=== PATIENT | male | born 1995 | race Native Hawaiian/Other Pacific Islander ===

== ENCOUNTER 2019-12-28 02:14 | Day surgery (SDC) | payer OTHER ==
[2019-12-28 02:42] LABS: BILIRUBIN,URINE NEGATIVE (NEGATIVE); GLUCOSE, URINE (UA) NEGATIVE (NEGATIVE); KETONES,URINE (UA) TRACE mg/dL (NEGATIVE); LEUKOCYTE ESTERASE, URINE NEGATIVE (NEGATIVE); NITRITE,URINE NEGATIVE (NEGATIVE); OCCULT BLOOD,URINE NEGATIVE (NEGATIVE); PROTEIN,URINE NEGATIVE (NEGATIVE); UROBILINOGEN,URINE 0.2 (NORMAL) E.U./dL (NORMAL)
[2019-12-28 02:45] LABS: CLARITY,URINE CLEAR (CLEAR)
[2019-12-28] MEDS ORDERED: HYDROmorphone 1 MG/ML CARPUJECT IVP STA ×3 (02:47→07:16)
[2019-12-28] MEDS ORDERED: KETOROLAC 30 MG/ML VIAL IVP STA (02:47)
[2019-12-28] MEDS ORDERED: SODIUM CHLORIDE 0.9% 1,000 ML IV ONE (02:47)
--- NOTE | 2019-12-28 02:58 | ED Physician Documentation ---
History of Present Illness - Stated complaint Stated Complaint: ABD PX - Chief complaint Chief Complaint: Abd Pain - Additonal information Additional information: Patient comes emergency department complaining of lower abdominal plane pain t hat is slightly to the right. Patient states that this started suddenly this evening and that he was feeling fine earlier in the day. Patient states this is happened once before and that he was put on antibiotics for it. He still has his appendix. He denies any history of kidney stones that he knows of. He has had a little diarrhea and has had nausea with the pain, but no vomiting. Patient denies fevers or chills. No cough, shortness of breath, or chest pain. No dysuria. No other complaints at this time.He states movement makes the pain worse and nothing makes it better. Pain is 10 out of 10 at its worst. Review of Systems Ten Systems: 10 systems reviewed and negative Constitutional: reports: Reviewed and negative Eyes: reports: Reviewed and negative Ears: reports: Reviewed and negative Nose: reports: Reviewed and negative Throat: reports: Reviewed and negative Cardiac: reports: Reviewed and negative Respiratory: reports: Reviewed and negative GI: reports: Abdominal Pain, Nausea, Diarrhea : reports: Reviewed and negative Skin: reports: Reviewed and negative Musculoskeletal: reports: Reviewed and negative Neurologic: reports: Reviewed and negative Psychiatric: reports: Reviewed and negative Endocrine: reports: Reviewed and negative Immunocompromised: reports: Reviewed and negative PD PAST MEDICAL HISTORY - Present Medications Home Medications: Ambulatory Orders Medication Instructions Recorded Confirmed No Known Home Medications 12/28/19 12/28/19 - Allergies Allergies/Adverse Reactions: Allergies Allergy/AdvReac Type Severity Reaction Status Date / Time No Known Drug Allergies Allergy Verified 12/28/19 02:23 PD ED PE NORMAL - Vitals Vital signs reviewed: Yes - General General: Alert and oriented X 3, Well developed/nourished, Other (Patient appears significantly uncomfortable, wincing in pain. Other than this, he is in no apparent distress.) - HEENT HEENT: Atraumatic, PERRL, EOMI, Moist mucous membranes - Neck Neck: Supple, no meningeal sign - Cardiac Cardiac: RRR, No murmur - Respiratory Respiratory: No respiratory distress, Clear bilaterally - Abdomen Abdomen: Soft, Non distended, Other (Moderate tenderness suprapubic area and slightly to the right. 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, No motor deficit, No sensory deficit, Normal speech - Psych Psych: Normal mood, Normal affect Results - Vitals Vitals: Vital Signs - 24 hr 12/28/19 02:15 Temperature 36.9 C Heart Rate 97 Respiratory 16 Rate Blood Pressure 169/66 H O2 Saturation 97 Oxygen O2 Source Room air - Labs Labs: Laboratory Tests 12/28/19 12/28/19 12/28/19 02:30 02:50 02:50 WBC 14.0 H RBC 5.02 Hgb 15.6 Hct 44.4 MCV 88.4 MCH 31.1 H MCHC 35.1 RDW 11.1 L Plt Count 189 MPV 11.3 Neut # (Auto) 11.3 H Lymph # (Auto) 1.5 [place] # (Auto) 1.0 Eos # (Auto) 0.0 Baso # (Auto) 0.1 Absolute Nucleated RBC 0.00 Nucleated RBC % 0.0 Sodium 135 Potassium 4.2 Chloride 101 Carbon Dioxide 26 Anion Gap 8.0 BUN 17 Creatinine 0.9 Estimated GFR (MDRD) 102 Glucose 114 H Calcium 9.6 Total Bilirubin 0.8 AST 21 ALT 26 Alkaline Phosphatase 80 Total Protein 8.0 Albumin 4.9 Globulin 3.1 Albumin/Globulin Ratio 1.6 Lipase 25 Urine Color YELLOW Urine Clarity CLEAR Urine pH 6.0 Ur Specific [place] >=1.030 H Urine Protein NEGATIVE Urine Glucose (UA) NEGATIVE Urine Ketones TRACE Urine Occult Blood NEGATIVE Urine Nitrite NEGATIVE Urine Bilirubin NEGATIVE Urine Urobilinogen 0.2 (NORMAL) Ur Leukocyte Esterase NEGATIVE Ur Microscopic Review NOT INDICATED Urine Culture Comments NOT INDICATED - Rads (name of study) CT abdomen and pelvis Radiology: Final report received, Discussed with rads, EMP read indepedently, See rad report (Final radiologist interpretation: Acute appendicitis.) PD MEDICAL DECISION MAKING - ED course Complexity details: reviewed results, re-evaluated patient, considered differential, d/w patient ED course: Patient was worked up with labs, urinalysis, and CT scan of the abdomen and pelvis. He was treated symptomatically with IV Toradol and Dilaudid, as well as fluids.Patient was found to have moderate leukocytosis and acute appendicitis. I spoke with Dr. Chris, who is on-call. At his request patient was given IV antibiotics here in the emergency department and he did state he would see the pt at 0730 with plan for OR at 0800. I did select cefotetan for the patient. Departure - Departure Disposition: [facility] DC/Xfer Clinical Impression: Appendicitis Qualifiers: Appendicitis type: acute appendicitis Acute appendicitis type: unspecified acute appendicitis type Qualified Code(s): K35.80 - Unspecified acute appendicitis Condition: Serious
[2019-12-28 02:59] LABS: BASOPHILS # (AUTO) 0.1 10^3/uL (0.0-0.1); BASOPHILS % (AUTO) 0.5 %; EOSINOPHILS % (AUTO) 0.2 %; HGB - HEMOGLOBIN 15.6 g/dL (14.0-18.0); LYMPHOCYTES # (AUTO) 1.5 10^3/uL (1.5-3.5); LYMPHOCYTES % (AUTO) 10.9 %; MEAN CORPUSCULAR HEMOGLOBIN 31.1 pg (27.0-31.0); MEAN CORPUSCULAR HGB CONC 35.1 g/dL (32.0-36.0); MEAN CORPUSCULAR VOLUME 88.4 fL (80.0-94.0); MEAN PLATELET VOLUME 11.3 fL (7.4-11.4); MONOCYTES % (AUTO) 6.8 %; NEUTROPHILS # (AUTO) 11.3 10^3/uL (1.5-6.6); NEUTROPHILS % (AUTO) 81.2 %; PLT - PLATELET COUNT 189 10^3/uL (130-450); RED BLOOD COUNT 5.02 10^6/uL (4.70-6.10); RED CELL DISTRIBUTION WIDTH 11.1 % (12.0-15.0)
[2019-12-28 03:08] LABS: ALBUMIN 4.9 g/dL (3.2-5.5); ALBUMIN/GLOBULIN RATIO 1.6 (1.0-2.2); BILIRUBIN,TOTAL 0.8 mg/dL (0.2-1.0); CALCIUM 9.6 mg/dL (8.5-10.3); CREATININE 0.9 mg/dL (0.6-1.2)
[2019-12-28] MEDS ORDERED: IOVERSOL 320 100 ML VIAL IVP ONE ×2 (03:42→04:19)
--- NOTE | 2019-12-28 04:24 | CT Report ---
Reason: RLQ abd pain Procedure Date: 12/28/2019 Accession Number: [id number] / [id number] Procedure: CT - Abdomen/Pelvis W CPT Code: Final Report FULL RESULT: EXAM: CT ABDOMEN AND PELVIS EXAM DATE: 12/28/2019 04:16 AM. CLINICAL HISTORY: Right lower quadrant abdominal pain COMPARISONS: None. TECHNIQUE: Routine helical CT imaging was performed through the abdomen and pelvis. IV contrast: OPTIRAY 320. Enteric contrast: No. Reconstructions: Coronal and sagittal. In accordance with CT protocol optimization, one or more of the following dose reduction techniques were utilized for this exam: automated exposure control, adjustment of mA and/or KV based on patient size, or use of iterative reconstructive technique. FINDINGS: Lung bases are clear. The visible heart is normal in size. There is no pericardial effusion. The liver, gallbladder, spleen, pancreas, and adrenal glands are within normal limits. The kidneys are normal. There is no hydronephrosis. The appendix is dilated measuring up to 1.4 cm and demonstrates wall thickening. Multiple intraluminal appendicoliths are seen along the mid to distal portion of the appendix. There is surrounding fat stranding. No loculated intra-abdominal fluid collections seen. The remaining portions of the intestines are normal in caliber and position. There is no evidence of bowel obstruction, free intraperitoneal air, or ascites. Prominent right lower quadrant lymph nodes are likely reactive. The intra-abdominal aorta is normal in course and caliber. The bladder is normal. The prostate gland is normal. There is no free pelvic fluid. No acute osseous abnormality is seen. There are no suspicious lytic or blastic lesions. IMPRESSION: Acute appendicitis. RADIA
[2019-12-28] MEDS ORDERED: CEFOTETAN DISODIUM 2 GM in SODIUM CHLORIDE 0.9% MINIBAG 100 ML IV STA (04:42)
[2019-12-28] MEDS ORDERED: MORPHINE 10 MG/ML VIAL IVP STA (05:32)
[2019-12-28] MEDS ORDERED: ONDANSETRON 4 MG/2 ML VIAL IVP STA (05:37)
[2019-12-28] MEDS ORDERED: ONDANSETRON 4 MG/2 ML VIAL ONE (05:39)
[2019-12-28] MEDS ORDERED: LACTATED RINGERS 1,000 ML IV STA (07:16)
[2019-12-28] MEDS ORDERED: LIDOCAINE 1%-EPI 1:100000 20 ML MDV ONE (07:17)
[2019-12-28] MEDS ORDERED: BUPIVACAINE 0.25% PF 30 ML VIAL ONE (07:18)
[2019-12-28] MEDS ORDERED: GLYCOPYRROLATE 1 MG/5 ML VIAL IVP ONE (08:10)
[2019-12-28] MEDS ORDERED: fentaNYL 100 MCG/2 ML VIAL IVP ONE (08:10)
[2019-12-28] MEDS ORDERED: ROCURONIUM 50 MG/5 ML VIAL IVP ONE (08:10)
[2019-12-28] MEDS ORDERED: NEOSTIGMINE 1 MG/1 ML 10 ML MDV IVP ONE (08:10)
[2019-12-28] MEDS ORDERED: PROPOFOL 200 MG/20 ML VIAL IVP ONE (08:10)
[2019-12-28] MEDS ORDERED: MIDAZOLAM 2 MG/2 ML VIAL IVP ONE (08:10)
[2019-12-28] MEDS ORDERED: LIDOCAINE-MPF 2% 5 ML VIAL IM ONE (08:10)
--- NOTE | 2019-12-28 08:11 | ANESTHESIA ---
Pre-Anesthesia VS, & Labs - Diagnosis acute appendicitis - Procedure lap appy Vital Signs: Temp Pulse Resp BP Pulse Ox 36.9 C 75 18 126/80 99 12/28/19 02:15 12/28/19 07:30 12/28/19 07:30 12/28/19 07:30 12/28/19 07:30 Height 5 ft 8 in Weight (kg) 77.111 kg Body Mass Index 25.8 - NPO >8 hours - Lab Results Current Lab Results: Laboratory Tests 12/28/19 02:50: Sodium 135, Potassium 4.2, Chloride 101, Carbon Dioxide 26, Anion Gap 8.0, BUN 17, Creatinine 0.9, Estimated GFR (MDRD) 102, Glucose 114 H, Calcium 9.6, Total Bilirubin 0.8, AST 21, ALT 26, Alkaline Phosphatase 80, Total Protein 8.0, Albumin 4.9, Globulin 3.1, Albumin/Globulin Ratio 1.6, Lipase 25 12/28/19 02:50: WBC 14.0 H, RBC 5.02, Hgb 15.6, Hct 44.4, MCV 88.4, MCH 31.1 H, MCHC 35.1, RDW 11.1 L, Plt Count 189, MPV 11.3, Neut # (Auto) 11.3 H, Lymph # (Auto) 1.5, [place] # (Auto) 1.0, Eos # (Auto) 0.0, Baso # (Auto) 0.1, Absolute Nucleated RBC 0.00, Nucleated RBC % 0.0 Fish Bones: 12/28/19 02:50 12/28/19 02:50 Home Medications and Allergies Home Medications: Ambulatory Orders No Known Home Medications 12/28/19 Active Medications Lactated Ringer's (Lr) 1,000 mls @ 500 mls/hr IV .Q2H STA Stop: 12/28/19 09:15 Last Admin: 12/28/19 07:26 Dose: 500 mls/hr No Known Home Medications 12/28/19 Allergies/Adverse Reactions: Allergies Allergy/AdvReac Type Severity Reaction Status Date / Time No Known Drug Allergies Allergy Verified 12/28/19 02:23 Anes History & Medical History - Anesthetic History Family history of Anesthesia Complications: Denies Family history of Malignant Hyperthermia: Denies - Medical History Cardiovascular: reports: None Pulmonary: reports: None Gastrointestinal: reports: None Urinary: reports: None Neuro: reports: None Musculoskeletal: reports: None Endocrine/Autoimmune: reports: None Blood Disorders: reports: None Skin: reports: None Smoking Status: Never smoker Psychosocial: reports: No issues indicated Other Past Medical History: G6PD deficiency Exam General: Alert, Oriented x3, Cooperative, No acute distress Dental: WNL Mouth Openin Fingerbreadth Neck Mobility: Normal Mallampati classification: I Mental/Cognitive Status: Alert/Oriented X3, Normal for patient Plan Anesthesia Type: General Consent for Procedure(s) Verified and Reviewed: Yes Code Status: Attempt Resuscitation ASA classification: 2-Mild systemic disease Is this case an emergency?: Yes
--- NOTE | 2019-12-28 08:27 | HISTORY & PHYSICAL EXAMINATION ---
Chief Complaint - Chief Complaint Chief Complaint: rigth lower quadrant abdominal pain. severe Abdominal Pain HPI - History Obtained From History obtained from: Patient - History of Present Illness Severity at the worst: Severe Pain Quality: Aching Context-Pain started w/: Rest Timing: Gradual onset Improved with: Nothing Worsened by: Movement PMH/PSH - Past Medical History Cardiovascular: positive: None Respiratory: positive: None Neuro: positive: None Endocrine/Autoimmune: positive: None GI: positive: None, Other (treated medically for appendicitis 2 years ago) : positive: None HEENT: positive: None Psych: positive: None Musculoskeletal: positive: None Derm: positive: None Other Past Medical History: G6PD deficiency Social & Family Hx - Social History Does the pt smoke?: No Smoking Status: Never smoker Meds/Allgy - Home Medications Home Medications: Ambulatory Orders Medication Instructions Recorded Confirmed No Known Home Medications 12/28/19 12/28/19 - Allergies Allergies/Adverse Reactions: Allergies Allergy/AdvReac Type Severity Reaction Status Date / Time No Known Drug Allergies Allergy Verified 12/28/19 02:23 Review of Systems - Other Findings Other Findings: 10 pt ros otherwise unremarkable Exam - Vital Signs Vital Signs: Vital Signs x48h Temp Pulse Resp BP Pulse Ox 12/28/19 07:30 75 18 126/80 99 12/28/19 05:47 69 16 135/79 H 95 12/28/19 02:15 36.9 C 97 16 169/66 H 97 - Physical Exam General Appearance: positive: Alert, Moderate distress Eyes Bilateral: positive: Normal inspection, PERRL ENT: positive: ENT inspection nml Neck: positive: Nml inspection Respiratory: positive: No respiratory distress Cardiovascular: positive: Regular rate & rhythm Abdomen: positive: No distention, Tenderness (right lower quadrant guarding and tenderness), Guarding Extremities: positive: Non-tender Neurologic/Psychiatric: positive: Oriented x3 Results - Lab Results Fish Bones: 12/28/19 02:50 12/28/19 02:50 Other Lab Results: Lab Results x24hrs 12/28/19 12/28/19 12/28/19 Range/Units 02:50 02:50 02:30 WBC 14.0 H (4.8-10.8) x10^3/uL RBC 5.02 (4.70-6.10) 10^6/uL Hgb 15.6 (14.0-18.0) g/dL Hct 44.4 (42.0-52.0) % MCV 88.4 (80.0-94.0) fL MCH 31.1 H (27.0-31.0) pg MCHC 35.1 (32.0-36.0) g/dL RDW 11.1 L (12.0-15.0) % Plt Count 189 (130-450) 10^3/uL MPV 11.3 (7.4-11.4) fL Neut # (Auto) 11.3 H (1.5-6.6) 10^3/uL Lymph # (Auto) 1.5 (1.5-3.5) 10^3/uL [place] # (Auto) 1.0 (0.0-1.0) 10^3/uL Eos # (Auto) 0.0 (0.0-0.7) 10^3/uL Baso # (Auto) 0.1 (0.0-0.1) 10^3/uL Absolute Nucleated RBC 0.00 x10^3/uL Nucleated RBC % 0.0 /100WBC Sodium 135 (135-145) mmol/L Potassium 4.2 (3.5-5.0) mmol/L Chloride 101 (101-111) mmol/L Carbon Dioxide 26 (21-32) mmol/L Anion Gap 8.0 (6-13) BUN 17 (6-20) mg/dL Creatinine 0.9 (0.6-1.2) mg/dL Estimated GFR (MDRD) 102 (>89) Glucose 114 H (70-100) mg/dL Calcium 9.6 (8.5-10.3) mg/dL Total Bilirubin 0.8 (0.2-1.0) mg/dL AST 21 (10-42) IU/L ALT 26 (10-60) IU/L Alkaline Phosphatase 80 (42-121) IU/L Total Protein 8.0 (6.7-8.2) g/dL Albumin 4.9 (3.2-5.5) g/dL Globulin 3.1 (2.1-4.2) g/dL Albumin/Globulin Ratio 1.6 (1.0-2.2) Lipase 25 (22-51) U/L Urine Color YELLOW Urine Clarity CLEAR (CLEAR) Urine pH 6.0 (5.0-7.5) PH Ur Specific [place] >=1.030 H (1.002-1.030) Urine Protein NEGATIVE (NEGATIVE) mg/dL Urine Glucose (UA) NEGATIVE (NEGATIVE) mg/dL Urine Ketones TRACE (NEGATIVE) mg/dL Urine Occult Blood NEGATIVE (NEGATIVE) Urine Nitrite NEGATIVE (NEGATIVE) Urine Bilirubin NEGATIVE (NEGATIVE) Urine Urobilinogen 0.2 (NORMAL) (NORMAL) E.U./dL Ur Leukocyte Esterase NEGATIVE (NEGATIVE) Ur Microscopic Review NOT INDICATED Urine Culture Comments NOT INDICATED Impression/Plan - Problem List Problem List: recurrent appendicitis with severe symptoms and appendicoliths present. plan lap xavier. roxanne held and consent obtained
[2019-12-28] MEDS ORDERED: LACTATED RINGERS 1,000 ML IV ONE ×2 (08:36→09:49)
[2019-12-28] MEDS ORDERED: BUPIVACAINE 0.25% PF 30 ML VIAL SUBQ ONE (09:34)
[2019-12-28] MEDS ORDERED: ACETAMINOPHEN 325 MG TABLET PO PRN (10:31)
[2019-12-28] MEDS ORDERED: ONDANSETRON 4 MG/2 ML VIAL IVP PRN (10:31)
[2019-12-28] MEDS ORDERED: oxyCODONE 5 MG TABLET PO PRN (10:31)
[2019-12-28] MEDS ORDERED: CEFOTETAN DISODIUM 2 GM in SODIUM CHLORIDE 0.9% MINIBAG 100 ML IV SCH (11:00)
[2019-12-28] MEDS ORDERED: CEFOTETAN DISODIUM 2 GM in SODIUM CHLORIDE 0.9% 100ML 100 ML IV SCH (11:08)
[2019-12-28] MEDS: LACTATED RINGERS 1,000 ML IV SCH (14:48)
[2019-12-28] MEDS: HYDROcod/ACETAM 5/325 MG TABLET PO PRN (15:44)
[2019-12-28] MEDS: CEFOTETAN DISODIUM 2 GM in SODIUM CHLORIDE 0.9% 100ML 100 ML IV SCH (18:21)
--- NOTE | 2019-12-28 20:01 | OPERATIVE REPORT ---
DATE OF SERVICE: 12/28/2019 Physician: Corey Chris MD PREOPERATIVE DIAGNOSIS: Appendicitis, recurrent with appendicolith present. POSTOPERATIVE DIAGNOSIS: Appendicitis, recurrent with appendicolith present. PROCEDURE PERFORMED: Laparoscopic appendectomy. SURGEON: Corey Chris MD LITIGATION CLAIM REPRESENTATIVE: None. TYPE OF ANESTHESIA: General endotracheal anesthesia, local anesthesia with Marcaine. COMPLICATIONS: None. SPECIMEN: Appendix. ESTIMATED BLOOD LOSS: 5 mL DRAINS: None. FINDINGS: A very plump suppurative appendix without rupture or fluid within the abdomen. DRAINS: None. COMPLICATIONS: None. SPECIMENS: Appendix sent for pathology. INDICATIONS FOR PROCEDURE: The patient is a 24-year-old previously treated medically for appendiciti s 2 years ago. Twelve hours ago, he developed quite acute right lower quadrant abdominal pain. Ther e was guarding and peritoneal signs on exam. He had a CT scan revealing a 14 mm appendix with thomas us appendicoliths. He presents for surgery. Risks discussed, alternatives discussed. All questions were answered and consent obtained. DESCRIPTION OF PROCEDURE: The patient was properly identified, brought to the operating room, and pl aced in a supine position. General endotracheal anesthesia was induced. Sequential compression linda eusebio were placed. He previously received antibiotics. He was prepped and draped in a sterile fashion . Local anesthetic was given to incisional areas. An infraumbilical incision was made. Dissection proceeded down to the fascia. The fascia was incised and lifted upwards and the abdomen entered with a Veress needle. CO2 was then insufflated to a pressure of 15. A 12 mm trocar was placed followed by a 30-degree scope. There was no evidence of injury from Veress needle or trocar placement. Under direct vision, a 5 mm trocar was placed suprapubically and a 5 mm trocar was placed in the right upp er quadrant. The appendix was retracted anterior. Peritoneal type attachments were partially taken down, further mobilizing the appendix more anterior. A plane was created between the mesoappendix an d the appendix right at the cecum. The mesoappendix was divided with an Endo-JOSUE vascular load. Hem ostasis was assured. The appendix was then divided right at the cecum with an intestinal load. Agai n, hemostasis was assured. Approximately 5 mL of blood loss. This was aspirated. There was no purule nce within the abdomen. The appendix was placed in the EndoCatch bag and brought out. The trocars w ere removed under direct vision and CO2 evacuated. The fascia at the infraumbilical site was closed with a running 0 Vicryl suture. The skin was closed with buried interrupted 4-0 Monocryl. Dressings were applied. He tolerated the procedure very well. TD: 12/28/2019 18:17
[2019-12-28] MEDS: IBUPROFEN 600 MG TABLET PO PRN (21:00)
[2019-12-29] MEDS: LACTATED RINGERS 1,000 ML IV SCH (00:14)
[2019-12-29] MEDS: HYDROcod/ACETAM 5/325 MG TABLET PO PRN (00:24)
[2019-12-29] MEDS: CEFOTETAN DISODIUM 2 GM in SODIUM CHLORIDE 0.9% 100ML 100 ML IV SCH (04:58)
[2019-12-29] MEDS: IBUPROFEN 600 MG TABLET PO PRN (05:10)
[2019-12-29 06:00] LABS: BASOPHILS % (AUTO) 0.2 %; HGB - HEMOGLOBIN 13.3 g/dL (14.0-18.0); LYMPHOCYTES # (AUTO) 1.1 10^3/uL (1.5-3.5); LYMPHOCYTES % (AUTO) 8.5 %; MEAN CORPUSCULAR HEMOGLOBIN 30.3 pg (27.0-31.0); MEAN CORPUSCULAR HGB CONC 33.2 g/dL (32.0-36.0); MEAN CORPUSCULAR VOLUME 91.3 fL (80.0-94.0); MEAN PLATELET VOLUME 11.7 fL (7.4-11.4); MONOCYTES # (AUTO) 0.6 10^3/uL (0.0-1.0); MONOCYTES % (AUTO) 4.5 %; NEUTROPHILS # (AUTO) 11.4 10^3/uL (1.5-6.6); NEUTROPHILS % (AUTO) 86.3 %; PLT - PLATELET COUNT 171 10^3/uL (130-450); RED BLOOD COUNT 4.39 10^6/uL (4.70-6.10); RED CELL DISTRIBUTION WIDTH 11.3 % (12.0-15.0); WHITE BLOOD COUNT 13.2 x10^3/uL (4.8-10.8)
[2019-12-29 06:06] LABS: CALCIUM 8.8 mg/dL (8.5-10.3); CREATININE 0.9 mg/dL (0.6-1.2)
[2019-12-29 08:12] VITALS: BP 117/67
--- NOTE | 2019-12-29 09:04 | PROVIDER PROGRESS NOTE ---
Subjective - General Procedure Date: 12/28/19 Post Op Days: 1 Procedure Performed: lap appy - Review of Systems Wound/Incisions: positive: Healing well General: positive: No symptoms Gastrointestinal: positive: Other (mild post operative discomfort, controlled with pain meds) Objective - Patient Data Vital Signs: Vital Signs x48h Temp Pulse Resp BP Pulse Ox 12/29/19 07:35 36.7 C 73 16 117/67 100 12/29/19 04:35 36.4 C L 82 16 111/56 L 100 Weight: Weight 12/27/19 12/28/19 12/29/19 23:59 23:59 23:59 Weight (kg) 77.111 kg Intake & Output: Intake and Output Totals x24h 12/27/19 12/28/19 12/29/19 23:59 23:59 23:59 Intake Total 2200 1043.333 Balance 2200 1043.333 - Lab Results Lab Results: 12/29/19 05:24 12/29/19 05:24 Other Lab Results: Lab Results x24hrs 12/29/19 12/29/19 Range/Units 05:24 05:24 WBC 13.2 H (4.8-10.8) x10^3/uL RBC 4.39 L (4.70-6.10) 10^6/uL Hgb 13.3 L (14.0-18.0) g/dL Hct 40.1 L (42.0-52.0) % MCV 91.3 (80.0-94.0) fL MCH 30.3 (27.0-31.0) pg MCHC 33.2 (32.0-36.0) g/dL RDW 11.3 L (12.0-15.0) % Plt Count 171 (130-450) 10^3/uL MPV 11.7 H (7.4-11.4) fL Neut # (Auto) 11.4 H (1.5-6.6) 10^3/uL Lymph # (Auto) 1.1 L (1.5-3.5) 10^3/uL [place] # (Auto) 0.6 (0.0-1.0) 10^3/uL Eos # (Auto) 0.0 (0.0-0.7) 10^3/uL Baso # (Auto) 0.0 (0.0-0.1) 10^3/uL Absolute Nucleated RBC 0.00 x10^3/uL Nucleated RBC % 0.0 /100WBC Sodium 137 (135-145) mmol/L Potassium 3.6 (3.5-5.0) mmol/L Chloride 103 (101-111) mmol/L Carbon Dioxide 27 (21-32) mmol/L Anion Gap 7.0 (6-13) BUN 11 (6-20) mg/dL Creatinine 0.9 (0.6-1.2) mg/dL Estimated GFR (MDRD) 102 (>89) Glucose 145 H (70-100) mg/dL Calcium 8.8 (8.5-10.3) mg/dL - Current Medications Current Medications: Current Medications Generic Name Dose Route Start Last Admin Trade Name Freq PRN Reason Stop Dose Admin Hydrocodone Bitart/Acetaminophen 1 tab 12/28/19 10:31 12/29/19 00:24 Mil[place] 5/325 PO 1 tab Q4HR PRN Administration PAIN Lactated Ringer's 1,000 mls @ 100 mls/hr 12/28/19 14:00 12/29/19 00:14 Lr IV 100 mls/hr .Q10H IVONNE Administration Ibuprofen 600 mg 12/28/19 10:31 12/29/19 05:10 Motrin PO 600 mg Q6HR PRN Administration PAIN - Physical Exam Wound/Incisions: positive: Healing well, No drainage General Appearance: positive: No acute distress Cardiovascular: positive: Regular rate & rhythm Abdomen: positive: Non-tender Extremities: positive: Full ROM Neurologic/Psychiatric: positive: Oriented x3 Impression/Plan - Problem List Problem List: POD #1 s/p lap appy D/C home today
== END 2019-12-29 09:32 | disposition home or self-care (01) ==
LOC: ED 02:14 → SDS 08:09 → MS2 10:52 → SDS 12-29 09:32
PROVIDERS: ATTEND Surgery
PROC: 0DTJ4ZZ Resection of Appendix, Percutaneous Endoscopic Approach (ICD-10-PCS; principal; 2019-12-28 08:00)
DX: K35.890 Other acute appendicitis without perforation or gangrene (principal)
CPT/HCPCS: 36415; 44970; 74177; 80048; 80053; 81003; 83690; 85025; 96374; 96376; 99284; 99285; A9270; J1170; J7120; Q9967; 81001; 87086